=== PATIENT | female | born 1965 | race Caucasian/White ===

== ENCOUNTER 2019-05-28 21:33 | Emergency (ER) | payer OTHER ==
[~2019-05-28] VITALS: Ht 160 cm; Wt 81.6 kg
[~2019-05-28 21:33] MED LIST: CELEBREX100 MG PO; DILANTIN100 MG PO; OSEL75CA PO; PHENAGIL TABLE1 EACH PO; SKELAXIN800 MG PO; ZYNCOF 20-400120 ML PO
[2019-05-29] MEDS ORDERED: BENADRYL25 MG PO ×2 (02:23→02:24)
[2019-05-29] MEDS ORDERED: KEFLEX500 MG PO (02:23)
== END 2019-05-29 02:38 | disposition home or self-care (01) ==
LOC: ER 21:33
DX: S90.572A Other superficial bite of ankle, left ankle, initial encounter (principal); S90.571A Other superficial bite of ankle, right ankle, initial encounter; L08.9 Local infection of the skin and subcutaneous tissue, unspecified; W57.XXXA Bitten or stung by nonvenomous insect and other nonvenomous arthropods, initial encounter; Y93.89 Activity, other specified; Y92.89 Other specified places as the place of occurrence of the external cause; Y99.8 Other external cause status

== ENCOUNTER 2019-10-29 20:10 | Emergency (ER) | payer OTHER ==
[~2019-10-29] VITALS: Ht 162.6 cm; Wt 90.7 kg
[~2019-10-29 20:10] MED LIST changes: +BENADRYL25 MG PO; +KEFLEX500 MG PO
== END 2019-10-29 21:59 | disposition home or self-care (01) ==
LOC: ER 20:10
DX: L03.115 Cellulitis of right lower limb (principal)